=== PATIENT | male | born 1995 | race African-American/Black ===

== ENCOUNTER 2018-01-05 19:16 | Emergency (ER) | payer OTHER ==
[2018-01-05] MEDS: LIDOCAINE 1% MDV 20ML VIAL SC (21:45)
== END 2018-01-05 22:25 | disposition home or self-care (01) ==
LOC: M ED 19:16
DX: S61.210A Laceration without foreign body of right index finger without damage to nail, initial encounter (principal); W23.0XXA Caught, crushed, jammed, or pinched between moving objects, initial encounter; Y92.018 Other place in single-family (private) house as the place of occurrence of the external cause; Z88.8 Allergy status to other drugs, medicaments and biological substances
CPT/HCPCS: 73140

== ENCOUNTER 2018-03-10 23:20 | Inpatient (IN) | payer OTHER ==
[2018-03-11 00:30] LABS: AMPHETAMINES LEVEL URINE NEGATIVE (NEGATIVE); BARBITURATES URINE NEGATIVE (NEGATIVE); BENZODIAZEPINES URINE NEGATIVE (NEGATIVE); CANNABINOIDS URINE NEGATIVE (NEGATIVE); COCAINE METABOLITE URINE NEGATIVE (NEGATIVE); METHADONE URINE NEGATIVE (NEGATIVE); OPIATES URINE NEGATIVE (NEGATIVE); PHENCYCLIDINE URINE NEGATIVE (NEGATIVE)
[2018-03-11 00:32] LABS: ACETAMINOPHEN LEVEL < 2.0 UG/ML (10.0-30.0); ALBUMIN 4.1 GM/DL (3.2-5.2); ALBUMIN/GLOBULIN RATIO 1.37 (1.00-1.93); ALKALINE PHOSPHATASE 67 U/L (45-117); ALT/SGPT 37 U/L (12-78); ANION GAP 6 MEQ/L (8-16); AST/SGOT 25 U/L (7-37); BILIRUBIN,DIRECT < 0.1 MG/DL (0.0-0.2); BILIRUBIN,TOTAL 0.3 MG/DL (0.2-1.0); BLOOD UREA NITROGEN 11 MG/DL (7-18); CALCIUM LEVEL 8.5 MG/DL (8.5-10.1); CARBON DIOXIDE LEVEL 29 MEQ/L (21-32); CHLORIDE LEVEL 109 MEQ/L (98-107); CREATININE FOR GFR 1.33 MG/DL (0.70-1.30); ETHYL ALCOHOL (ETHANOL) 0.126 % (0.000-0.010); GLOMERULAR FILTRATION RATE > 60.0 (>60); GLUCOSE, FASTING 93 MG/DL (70-100); SALICYLATE LEVEL 2.2 MG/DL (5.0-30.0); SODIUM LEVEL 144 MEQ/L (136-145); TOTAL PROTEIN 7.1 GM/DL (6.4-8.2)
[2018-03-11 00:35] LABS: HEMATOCRIT 45.5 % (42.0-52.0); HEMOGLOBIN 14.7 g/dl (13.5-17.5); MEAN CORPUSCULAR HEMOGLOBIN 27.4 pg (27.0-33.0); MEAN CORPUSCULAR HGB CONC 32.3 g/dl (32.0-36.5); MEAN CORPUSCULAR VOLUME 84.7 fl (80.0-96.0); PLATELET COUNT, AUTOMATED 215 10^3/uL (150-450); RED BLOOD COUNT 5.37 10^6/uL (4.30-6.10); RED CELL DISTRIBUTION WIDTH 13.3 % (11.5-14.5); WHITE BLOOD COUNT 6.2 10^3/uL (4.0-10.0)
[2018-03-11] MEDS ORDERED: MAALOX 30 ML SUSP *UDC PO (06:45)
[2018-03-11] MEDS ORDERED: LORazepam 2 MG TAB PO (06:45)
[2018-03-11] MEDS ORDERED: MOM 30ML SUSPENSION UDC PO (06:45)
[2018-03-11] MEDS ORDERED: MULTIVITAMINS/MINERALS THERAP 1 TAB PO (09:00)
[2018-03-11] MEDS: FOLIC ACID 1 MG TAB PO (10:01)
[2018-03-11] MEDS: ACETAMINOPHEN TAB 650MG DOSE (2X325MG) PO (10:01)
[2018-03-11] MEDS: THIAMINE 100 MG TAB PO ×2 (10:01→20:42)
[2018-03-11] MEDS: NICOTINE 21MG/24HR 1 EA TRANSDERMAL TD (10:02)
[2018-03-11] MEDS: MULTIVITAMINS CHILDREN'S CHEWABLE TABLET PO (10:28)
[2018-03-11] MEDS: SERTRALINE HCL 50 MG TAB PO (20:42)
[2018-03-12] MEDS: traZODone 50 MG TAB PO (00:03)
[2018-03-12 08:12] LABS: ANION GAP 6 MEQ/L (8-16); BLOOD UREA NITROGEN 9 MG/DL (7-18); CALCIUM LEVEL 8.6 MG/DL (8.5-10.1); CARBON DIOXIDE LEVEL 27 MEQ/L (21-32); CHLORIDE LEVEL 108 MEQ/L (98-107); CREATININE FOR GFR 1.32 MG/DL (0.70-1.30); GLOMERULAR FILTRATION RATE > 60.0 (>60); GLUCOSE, FASTING 89 MG/DL (70-100); POTASSIUM SERUM 4.1 MEQ/L (3.5-5.1); SODIUM LEVEL 141 MEQ/L (136-145)
[2018-03-12] MEDS: NICOTINE 21MG/24HR 1 EA TRANSDERMAL TD (08:15)
[2018-03-12] MEDS: FOLIC ACID 1 MG TAB PO (08:15)
[2018-03-12] MEDS: THIAMINE 100 MG TAB PO ×2 (08:15→20:58)
[2018-03-12] MEDS: MULTIVITAMINS CHILDREN'S CHEWABLE TABLET PO (08:15)
[2018-03-12] MEDS: SERTRALINE HCL 50 MG TAB PO (20:58)
[2018-03-13] MEDS: traZODone 50 MG TAB PO ×2 (00:02→22:53)
[2018-03-13] MEDS: NICOTINE 21MG/24HR 1 EA TRANSDERMAL TD (08:17)
[2018-03-13] MEDS: THIAMINE 100 MG TAB PO ×2 (08:17→20:39)
[2018-03-13] MEDS: MULTIVITAMINS CHILDREN'S CHEWABLE TABLET PO (08:17)
[2018-03-13] MEDS: FOLIC ACID 1 MG TAB PO (08:17)
[2018-03-13] MEDS: SERTRALINE HCL 50 MG TAB PO (20:39)
[2018-03-14] MEDS: FOLIC ACID 1 MG TAB PO (08:39)
[2018-03-14] MEDS: NICOTINE 21MG/24HR 1 EA TRANSDERMAL TD (08:39)
[2018-03-14] MEDS: MULTIVITAMINS CHILDREN'S CHEWABLE TABLET PO (08:39)
== END 2018-03-14 14:15 | disposition home or self-care (01) | DRG 885 ==
LOC: M ED 23:20 → M PSY 03-13 10:50 → M ED INP 03-11 06:45 → M PSY 03-11 08:37
DX: F33.2 Major depressive disorder, recurrent severe without psychotic features (principal); Z81.8 Family history of other mental and behavioral disorders; F17.210 Nicotine dependence, cigarettes, uncomplicated; F17.220 Nicotine dependence, chewing tobacco, uncomplicated; Z88.8 Allergy status to other drugs, medicaments and biological substances